=== PATIENT | female | born 1970 ===

== ENCOUNTER 2023-10-10 14:42 | Emergency (ER) | payer OTHER ==
[~2023-10-10] VITALS: Ht 170.2 cm; Wt 74.8 kg
[2023-10-10 14:59] VITALS: BP 123/72
[2023-10-10] MEDS ORDERED: CYCL10 PO ×2 (15:05→16:12)
[2023-10-10] MEDS ORDERED: ALVESCO6.1 GM INH (15:05)
[2023-10-10] MEDS ORDERED: ALBU90OI INH (15:05)
[2023-10-10] MEDS ORDERED: ROSU10TA PO (15:06)
[2023-10-10] MEDS ORDERED: OMEPRAZOLE20 M1 PO (15:06)
[2023-10-10] MEDS ORDERED: GLUCOPHAGE1000 M2 PO (15:07)
[2023-10-10] MEDS ORDERED: BENZ100A PO (15:07)
== END 2023-10-10 16:32 | disposition home or self-care (01) ==
LOC: ER 14:42
DX: S76.112A Strain of left quadriceps muscle, fascia and tendon, initial encounter (principal); W19.XXXA Unspecified fall, initial encounter; Z91.048 Other nonmedicinal substance allergy status; Z91.040 Latex allergy status; Z79.899 Other long term (current) drug therapy; Z79.84 Long term (current) use of oral hypoglycemic drugs
CPT/HCPCS: 29505; 73564; 99283-25; A9270